=== PATIENT | male | born 1960 | race Caucasian/White ===

== ENCOUNTER → 2022-05-10 | Outpatient (CLI) | payer OTHER, SELFPAY ==
--- NOTE | 2022-05-10 14:28 | RAD_ITS ---
STUDY: X-RAY - LUMBAR SPINE REASON FOR EXAM: Male, 61 years old. post laminectomy syndrome TECHNIQUE: XR Spine Lumbar 2 or 3 Views COMPARISON: None FINDINGS: Normal lumbar lordosis. There is no substantial scoliosis. There is a normal alignment of the vertebrae. There is multilevel endplate spondylosis of the lumbar vertebrae. There is multi-level degenerative disc disease with multi-level disc space narrowing. The soft tissue structures are unremarkable. RAD/Lumbar Spine 2 or 3 Views IMPRESSION: Degenerative changes of the spine, as detailed above. Electronically Signed: Leroy Garza MD at 16:48 EDT ,
--- NOTE | 2022-05-10 14:28 | RAD_ITS ---
STUDY: X-RAY - PELVIS AND BILATERAL HIP REASON FOR EXAM: Male, 61 years old. bilateral primary osteoarthritis of hip TECHNIQUE: XR Hips Bilateral with Pelvis when performed; 2 Views COMPARISON: None. FINDINGS: There is a non-specific bowel gas pattern. Normal visualized soft tissue structures. Normal bilateral iliac wings, sacroiliac joints and visualized sacrum. Normal bilateral superior and inferior pubic rami. Normal pubic symphysis. Normal bilateral ischial tuberosities. Normal visualized femoral head. Normal acetabulum. Normal hip joint. RAD/Hips B/L min 2 views w/ Pelvis IMPRESSION: No acute findings. Electronically Signed: Leroy Garza MD at 16:48 EDT ,
== END | disposition home or self-care (01) ==
PROVIDERS: PCP Family Medicine; Visit Provider Anesthesiology Pain Medicine
DX: M47.816 Spondylosis without myelopathy or radiculopathy, lumbar region (principal); M51.36 Other intervertebral disc degeneration, lumbar region; M16.0 Bilateral primary osteoarthritis of hip; M96.1 Postlaminectomy syndrome, not elsewhere classified
CPT/HCPCS: 72100; 73521

== ENCOUNTER → 2022-05-29 | Outpatient (CLI) | payer OTHER, SELFPAY ==
--- NOTE | 2022-05-29 15:43 | MRI_ITS ---
STUDY: MRI LUMBAR SPINE WITHOUT CONTRAST REASON FOR EXAM: Male, 61 years old. BACK PAIN INTO B/L LEGS, LUMBAR RADICULOPATHY TECHNIQUE: Standardized fat and water weighted pulse sequences were obtained in the sagittal and axial planes. COMPARISON: X-ray the lumbar spine dated MAY 10, 2022 FINDINGS: There is straightening of the normal lumbar lordosis. There is no substantial scoliosis. Normal conus medullaris that terminates at the T12-L1 level. No marrow edema or fracture or compression deformity is present. T12-L1: Normal endplates. Normal disc height, hydration and morphology. Normal bilateral facet joints. Normal central canal and bilateral lateral recesses. Normal bilateral intervertebral neural foramina. L1-2: There is bilateral facet arthropathy. Loss of intervertebral disc height. There is endplate spondylosis of the vertebral body. Right paracentral disc herniation. Narrowing of the right lateral recess. No spinal stenosis. Unremarkable intervertebral neuroforamina. L2-3: There is bilateral facet arthropathy. Loss of intervertebral disc height. There is endplate spondylosis of the vertebral body. Unremarkable central canal. Unremarkable intervertebral neuroforamina. L3-4: There is bilateral facet arthropathy. Loss of intervertebral disc height. There is endplate spondylosis of the vertebral body. There is bilateral ligamentum flavum thickening. Narrowing the lateral recess. Moderate spinal stenosis. 2.1 mm grade 1 anterolisthesis of L3 on L4. This is causing narrowing of the bilateral Intervertebral neuroforamina. L4-5: There is bilateral facet arthropathy. Loss of intervertebral disc height. There is endplate spondylosis of the vertebral body. Posterior disc bulge osteophyte complex. Mild narrowing of the Central canal. Narrowing of the bilateral intervertebral neuroforamina. Compression of exiting nerve roots. L5-S1: There is bilateral facet arthropathy. Loss of intervertebral disc height. There is endplate spondylosis of the vertebral body. Posterior disc bulge osteophyte complex. Mild narrowing of the Central canal. Narrowing of the bilateral intervertebral neuroforamina. Compression of exiting nerve roots. Normal visualized sacral ala. Normal visualized paraspinous soft tissue structures. MRI/Spine Lumbar (Routine) IMPRESSION: 1. Multilevel degenerative changes, as described above. 2. Posterior and left laminotomy surgical decompressive defects from L4 down to L5-S1 3. There is mild straightening of the normal lumbar lordosis. This can suggest back strain. 4. L1-2: Right paracentral disc herniation. Narrowing of the right lateral recess. No spinal stenosis. Electronically Signed: Leroy Garza MD at 16:18 EDT ,
== END | disposition home or self-care (01) ==
PROVIDERS: PCP Family Medicine; Visit Provider Anesthesiology Pain Medicine
DX: M51.16 Intervertebral disc disorders with radiculopathy, lumbar region (principal)
CPT/HCPCS: 72148